=== PATIENT | male | born 1950 | race Caucasian/White ===

== ENCOUNTER → 2017-09-02 | Outpatient (CLI) | payer MEDICARE ==
[~2017-09-02] MED LIST: ASPIRIN325 MG PO; COZAAR50 MG PEG; LIPITOR40 MG PO; LISINOPRIL; METOPROLOL-HCT1 EACH; PLAVIX; REGADENOSON 0.4 MG/5 ML SYR IV ONE; TRICOR; WELLBUTRIN; ZOLOFT
--- NOTE | 2017-09-05 13:39 | Cardiology Report ---
DATE OF STUDY: September 02, 2017 NUCLEAR GATED MYOCARDIAL PERFUSION SCAN Nuclear gated myocardial perfusion scan performed as per protocol at nuclear medicine lab at [facility]. Lexiscan injected 0.4 mg intravenously as a stress agent. Myoview was injected 11 millicuries for resting protocol and 27 millicuries for stress protocol. IMPRESSION 1. Left ventricular ejection fraction is 30% to 35% with global hypokinesia noted. 2. Left ventricular enlargement noted. 3. Inferior scar and lateral scar are noted. Mild lateral ischemia noted. 4. Abnormal study. Job#: [id number]
== END ==
LOC: NM 07:35
PROVIDERS: ATTEND Internal Medicine Cardiovascular Disease
DX: R94.31 Abnormal electrocardiogram [ECG] [EKG] (principal)
CPT/HCPCS: 78452; 93017; A9502

== ENCOUNTER → 2022-10-05 | Outpatient (CLI) | payer MEDICARE | LOC: NM 09:20 | PROVIDERS: ATTEND Internal Medicine Cardiovascular Disease | DX: Z01.818 Encounter for other preprocedural examination (principal); I25.10 Atherosclerotic heart disease of native coronary artery without angina pectoris; E11.8 Type 2 diabetes mellitus with unspecified complications; I10 Essential (primary) hypertension; R60.9 Edema, unspecified | CPT/HCPCS: 78452; 93017; A9502; J2785 ==

== ENCOUNTER → 2022-12-03 | Day surgery (SDC) | payer MEDICARE ==
[2022-11-30 11:44] LABS: BASOPHILS # (AUTO) 0.1 (0.0-0.1); BASOPHILS % 0.5 % (0.0-1.0); EOSINOPHILS # (AUTO) 0.2 (0.0-0.4); EOSINOPHILS % 1.3 % (0.0-6.0); HEMATOCRIT 35.1 % (38.2-49.6); HEMOGLOBIN 11.8 g/dL (14.0-18.0); LYMPHOCYTES # (AUTO) 1.4 (1.0-3.2); LYMPHOCYTES % 10.8 % (18.0-39.1); MEAN CORPUSCULAR HGB CONC 33.6 g/dL (31-35); MEAN CORPUSCULAR VOLUME 92.1 fL (81-99); MONOCYTES # (AUTO) 1.2 (0.2-0.8); MONOCYTES % 9.6 % (4.4-11.3); NEUTROPHILS # (AUTO) 9.9 (2.1-6.9); NEUTROPHILS % 77.3 % (38.7-80.0); PLATELET COUNT 122 x10e3/uL (140-360); RED BLOOD COUNT 3.81 x10e6/uL (4.3-5.7); RED CELL DISTRIBUTION WIDTH 14.9 % (11.7-14.4)
[2022-11-30 12:07] LABS: ANION GAP 13.8 mmol/L (8-16); CALCIUM 9.3 mg/dL (8.4-10.2); CREATININE, SERUM 1.78 mg/dL (0.72-1.25); POTASSIUM 4.8 mmol/L (3.5-5.1)
[~2022-12-03] MED LIST changes: +ALDACTONE100 MG PO; +AMLODIPINE BESY10 MG PO; +CEFTRIAXONE 1 GM VIAL ONE; +CETIRIZINE HCL10 MG PO; +ENTRESTO 24 MG1 EACH PO; +ETOMIDATE 2 MG/ML 10 ML INJ IV ONE; +FENTANYL CITRATE/PF 100MCG/2 ML INJ ONE; +FLOMAX0.4 MG PO; +FUROSEMIDE40 MG PO; +HYDRALAZINE HCL25 MG PO; +IOPAMIDOL 610MG/1ML 300 MG/ML VIAL IV ONE; +LACTATED RINGER'S 1,000 ML ONE; +LIDOCAINE HCL 2% LOCAL INJ 5 ML SDV VIAL INJ ONE; +METOPROLOL SUC100 MG; +METOPROLOL SUCC50 MG PO; +ONDANSETRON HCL INJ 2MG/ML 2ML 2 MG/ML VIAL ONE; +PANTOPRAZOLE SO20 MG PO; -PLAVIX; +PLAVIX PO; +POVIDONE IODINE 0.05% 0.05 % ML PO ONE; -REGADENOSON 0.4 MG/5 ML SYR IV ONE; +SEVOFLURANE INHAL SOLN 250 ML PEN BTL ONE; +UROCIT-K10 MEQ PO; +VITAMIN B-121000 MCG PO; +VITAMIN D3125 MCG PO
[2022-12-03 10:15] VITALS: BP 103/59; PULSE 71; RESP 16; O2SAT 96
== END | disposition home or self-care (01) ==
LOC: OR 06:01
PROVIDERS: ATTEND Urology
DX: N20.0 Calculus of kidney (principal); N39.0 Urinary tract infection, site not specified; N35.919 Unspecified urethral stricture, male, unspecified site; N13.30 Unspecified hydronephrosis; N40.1 Benign prostatic hyperplasia with lower urinary tract symptoms; N13.8 Other obstructive and reflux uropathy; N32.89 Other specified disorders of bladder; I10 Essential (primary) hypertension; E11.9 Type 2 diabetes mellitus without complications; I25.810 Atherosclerosis of coronary artery bypass graft(s) without angina pectoris; K21.9 Gastro-esophageal reflux disease without esophagitis; R60.9 Edema, unspecified; F17.200 Nicotine dependence, unspecified, uncomplicated; Z01.810 Encounter for preprocedural cardiovascular examination; Z01.812 Encounter for preprocedural laboratory examination; Z01.818 Encounter for other preprocedural examination; Z79.02 Long term (current) use of antithrombotics/antiplatelets; Z79.82 Long term (current) use of aspirin; Z79.899 Other long term (current) drug therapy; Z95.1 Presence of aortocoronary bypass graft
CPT/HCPCS: 36415 ×2; 50590; 52281; 71046; 74018; 80048; 82948; 83970; 84550; 85025; 87086; 87186; 93005; C1758; J0696; J2001; J2405; J3010; J7121; Q9967

== ENCOUNTER → 2023-08-26 | Outpatient (REF) | payer MEDICARE ==
[~2023-08-26] MED LIST changes: -CEFTRIAXONE 1 GM VIAL ONE; -ETOMIDATE 2 MG/ML 10 ML INJ IV ONE; -FENTANYL CITRATE/PF 100MCG/2 ML INJ ONE; -IOPAMIDOL 610MG/1ML 300 MG/ML VIAL IV ONE; -LACTATED RINGER'S 1,000 ML ONE; -LIDOCAINE HCL 2% LOCAL INJ 5 ML SDV VIAL INJ ONE; -ONDANSETRON HCL INJ 2MG/ML 2ML 2 MG/ML VIAL ONE; -POVIDONE IODINE 0.05% 0.05 % ML PO ONE; -SEVOFLURANE INHAL SOLN 250 ML PEN BTL ONE
== END ==
LOC: RAD 10:46
PROVIDERS: ATTEND Urology
DX: N20.0 Calculus of kidney (principal)
CPT/HCPCS: 74018

== ENCOUNTER → 2025-02-18 | Outpatient (REF) | payer MEDICARE | LOC: CT 11:50 | PROVIDERS: ATTEND Urology | DX: N20.0 Calculus of kidney (principal) | CPT/HCPCS: 74176 ==